=== PATIENT | male | born 1930 | race Caucasian/White ===

== ENCOUNTER 2017-09-10 15:14 | Emergency (ER) | payer MEDICARE, OTHER ==
[2017-09-10] MEDS ORDERED: HYDROmorphone 0.5 MG/0.5 ML Syringe IVPUSH ONE (17:11)
--- NOTE | 2017-09-10 17:13 | EDM.PDOC ---
ED HPI GENERAL MEDICAL PROBLEM - General Chief Complaint: Flank Pain Stated Complaint: POSSIBLE KIDNEY STONE Time Seen by Provider: 09/10/17 16:20 Source of Information: Reports: Patient History Limitations: Reports: No Limitations - History of Present Illness INITIAL COMMENTS - FREE TEXT/NARRATIVE: pt arrived with pain in the left flank. He got up and felt fine and then he developed acute pain in the left flank that was up around a 10, He states ithen went away an now it is back again. He has not had a fever. Onset: Sudden Duration: Hour(s):, Other ( It has been waxing and waning all day. ) Location: Reports: Abdomen, Other ( left flank. ) Associated Symptoms: Reports: No Other Symptoms Left Flank Pain Score (Numeric/FACES): 1 - Related Data Allergies Allergy/AdvReac Type Severity Reaction Status Date / Time silver sulfadiazine Allergy Rash Verified 09/10/17 16:20 [From Silvadene] Sulfa (Sulfonamide Allergy Rash Verified 09/10/17 16:20 Antibiotics) Home Meds: Home Meds Aspirin [Halfprin] 1 tab PO DAILY 09/10/17 [History] Budesonide/Formoterol [Symbicort 160-4.5 MCG] 1 puff INH BID 09/10/17 [History] Cholecalciferol (Vitamin D3) [Vitamin D3] 1 cap PO DAILY 09/10/17 [History] Citalopram [Citalopram HBr] 1 tab PO DAILY 09/10/17 [History] Fish Oil/DHA/EPA [Fish Oil 1,200 MG] 2 tab PO BID 09/10/17 [History] Furosemide 1 tab PO DAILY 09/10/17 [History] Multivitamin [Multivitamins] 1 tab PO DAILY 09/10/17 [History] Propranolol [Inderal LA] 0.5 tab PO DAILY 09/10/17 [History] Simvastatin [Zocor] 10 mg PO BEDTIME 09/10/17 [History] Past Medical History HEENT History: Reports: Cataract, Impaired Vision Cardiovascular History: Reports: High Cholesterol Respiratory History: Reports: Bronchitis, Recurrent Neurological History: Reports: Other (See Below) Other Neuro History: essential tremors Dermatologic History: Reports: Eczema - Past Surgical History HEENT Surgical History: Reports: Cataract Surgery GI Surgical History: Reports: Appendectomy, Hernia Repair/Other Social & Family History - Tobacco Use Smoking Status *Q: Never Smoker - Recreational Drug Use Recreational Drug Use: No ED ROS GENERAL - Review of Systems Review Of Systems: See Below Constitutional: Reports: No Symptoms HEENT: Reports: No Symptoms Respiratory: Reports: No Symptoms Cardiovascular: Reports: No Symptoms Endocrine: Reports: No Symptoms GI/Abdominal: Reports: No Symptoms : Reports: No Symptoms, Flank Pain, Other ( The flank pain has been coming and going. ) ED EXAM,LOWER BACK PAIN/INJURY - Physical Exam Exam: See Below Text/Narrative:: Pt arrived with acute left flank pain. He did not note blood in the urine. Exam Limited By: No Limitations General Appearance: Alert, Moderate Distress Ears: Normal TMs Nose: Normal Inspection Throat/Mouth: Normal Inspection Head: Atraumatic Neck: Normal Inspection Respiratory/Chest: No Respiratory Distress GI/Abdominal: Other (tender in the left flank area and tender by the left side of the bladder. ) (Male) Exam: Deferred Rectal (Males) Exam: Deferred Back Exam: Normal Inspection Extremities: Normal Inspection Neurological: Alert Course - Vital Signs Last Recorded V/S: Last Vital Signs Temp 36.2 C 09/10/17 16:13 Pulse 53 L 09/10/17 16:13 Resp 18 09/10/17 16:13 BP 159/71 H 09/10/17 16:13 Pulse Ox 93 L 09/10/17 16:13 - Orders/Labs/Meds Labs: Laboratory Tests 09/10/17 09/10/17 09/10/17 Range/Units 16:32 17:20 17:20 WBC 13.2 H (4.5-11.0) K/uL RBC 5.02 (4.30-5.90) M/uL Hgb 16.2 H (12.0-15.0) g/dL Hct 48.6 (40.0-54.0) % MCV 97 (80-98) fL MCH 32 H (27-31) pg MCHC 33 (32-36) % Plt Count 294 (150-400) K/uL Neut % (Auto) 63 (36-66) % Lymph % (Auto) 20 L (24-44) % [place] % (Auto) 9 H (2-6) % Eos % (Auto) 8 H (2-4) % Baso % (Auto) 1 (0-1) % Sodium 140 (140-148) mmol/L Potassium 4.5 (3.6-5.2) mmol/L Chloride 102 (100-108) mmol/L Carbon Dioxide 30 (21-32) mmol/L Anion Gap 8.1 (5.0-14.0) mmol/L BUN 22 H (7-18) mg/dL Creatinine 1.3 (0.8-1.3) mg/dL Est Cr Clr Drug Dosing 40.92 mL/min Estimated GFR (MDRD) 53 L (>60) Glucose 104 (74-106) mg/dL Calcium 9.0 (8.5-10.1) mg/dL Total Bilirubin 0.5 (0.2-1.0) mg/dL AST 27 (15-37) U/L ALT 41 (12-78) U/L Alkaline Phosphatase 76 (46-116) U/L Total Protein 7.8 (6.4-8.2) g/dL Albumin 3.9 (3.4-5.0) g/dL Globulin 3.9 H (2.3-3.5) g/dL Albumin/Globulin Ratio 1.0 L (1.2-2.2) Urine Color [place] Urine Appearance Clear Urine pH 5.0 (4.5-8.0) Ur Specific [place] 1.015 (1.008-1.030) Urine Protein Negative (NEGATIVE) mg/dL Urine Glucose (UA) Normal (NEGATIVE) mg/dL Urine Ketones Negative (NEGATIVE) mg/dL Urine Occult Blood Large (NEGATIVE) Urine Nitrite Negative (NEGAITVE) Urine Bilirubin Negative (NEGATIVE) Urine Urobilinogen Normal (NORMAL) mg/dL Ur Leukocyte Esterase Negative (NEGATIVE) Urine RBC 10-20 H (0-5) Urine WBC Not seen (0-5) Ur Epithelial Cells Not seen Amorphous Sediment Not seen Urine Bacteria Not seen Urine Mucus Not seen Meds: Medications Discontinued Medications Generic Name Dose Route Start Last Admin Trade Name Freq PRN Reason Stop Dose Admin Hydromorphone HCl 0.5 mg 09/10/17 17:11 09/10/17 17:31 Dilaudid IVPUSH 09/10/17 17:12 0.5 mg ONETIME ONE Administration Sodium Chloride 1,000 mls @ 400 mls/hr 09/10/17 17:15 09/10/17 17:33 Normal Saline IV 400 mls/hr ASDIRECTED MILLIE Administration Ketorolac Tromethamine 30 mg 09/10/17 18:09 09/10/17 18:41 Toradol IVPUSH 09/10/17 18:10 30 mg ONETIME ONE Administration Tamsulosin HCl 0.4 mg 09/10/17 18:09 09/10/17 18:45 Flomax PO 09/10/17 18:10 0.4 mg ONETIME ONE Administration - Re-Assessments/Exams Free Text/Narrative Re-Assessment/Exam: 09/10/17 18:11 small stone in the left ureter by the uvj juntion. He did get relief from the dilaudid but his pain is now coming back 09/12/17 07:33 He was given torodol and he became painfree. He wondered if he might have passed a stone into the bladder. Departure - Departure Time of Disposition: 19:05 Disposition: Home, Self-Care 01 Condition: Fair Clinical Impression: Left ureteral stone - Discharge Information Instructions: Kidney Stones, [id number] Referrals: PCP,None [Primary Care Provider] - Forms: ED Department Discharge Care Plan Goals: strain all urine, push fluids, flomax .4 1 tab daily, percocet 5/325 q6h #8, torordol 10mg q6h prn for pain
[2017-09-10] MEDS ORDERED: Sodium Chloride 0.9% 1,000 ML IV SCH (17:15)
[2017-09-10] MEDS ORDERED: Ketorolac 30 MG/ML SDV IVPUSH ONE (18:09)
[2017-09-10] MEDS ORDERED: Tamsulosin 0.4 MG Cap.ER PO ONE (18:09)
== END 2017-09-10 19:21 | disposition home or self-care (01) ==
LOC: JP.ED 15:14
DX: N13.2 Hydronephrosis with renal and ureteral calculous obstruction (principal); E78.00 Pure hypercholesterolemia, unspecified; Z88.8 Allergy status to other drugs, medicaments and biological substances; Z88.2 Allergy status to sulfonamides; Z79.82 Long term (current) use of aspirin; Z79.899 Other long term (current) drug therapy
CPT/HCPCS: 36415; 74176; 80053; 81001; 85025; 96361; 96374; 96375; 99284; A9270; J1170; J1885; J7030